=== PATIENT | male | born 1995 | race Caucasian/White ===

== ENCOUNTER 2018-11-02 10:23 | Emergency (ER) | payer MEDICAID ==
[~2018-11-02] VITALS: Ht 190.5 cm; Wt 77.8 kg
[2018-11-02 10:27] VITALS: BP 110/62; PULSE 71; RESP 19; Ht 190.5 cm; Wt 77.8 kg
[2018-11-02] MEDS ORDERED: ACET325T33 PO (11:25)
[2018-11-02] MEDS ORDERED: IBUP-1542 PO (11:25)
--- NOTE | 2018-11-02 11:27 | ERD ---
ER Documentation Chief Complaint Chief Complaint RIGHT HAND PAIN/INJURY HPI 23-year-old male presenting ER with right hand pain secondary to punching a wall 2 days ago. Patient states he was drinking alcohol and he punched a wall with friends. Patient is able to fully functional of his fingers he does not have limited range of motion. Patient has no allergies to medication and denies any past medical history. Patient states the pain is a 4 out of 10. The patient has not taken any medication or tried any intervention for this hand injury ROS All systems reviewed and are negative except as per history of present illness. Medications Home Meds Active Scripts Ibuprofen* (Motrin*) 600 Mg Tab, 600 MG PO Q6, #30 TAB Prov:JOSÉ ANTONIO HOLM PA-C 11/02/18 Acetaminophen* (Tylenol*) 325 Mg Tablet, 1 TAB PO Q6 PRN for PAIN AND OR ELEVATED TEMP, #20 TAB Prov:JOSÉ ANTONIO HOLM PA-C 11/02/18 Allergies Allergies: Coded Allergies: No Known Allergy (Unverified , 11/02/18) PMhx/Soc Medical and Surgical Hx: pt denies Medical Hx, pt denies Surgical Hx History of Surgery: No Hx Neurological Disorder: No Hx Respiratory Disorders: No Hx Cardiac Disorders: No Hx Psychiatric Problems: No Hx Miscellaneous Medical Probl: No Hx Alcohol Use: No Hx Substance Use: No Hx Tobacco Use: No Smoking Status: Never smoker FmHx Family History: No diabetes, No coronary disease, No other Physical Exam Vitals Vital Signs Date Temp Pulse Resp B/P (MAP) Pulse Ox O2 O2 Flow FiO2 Time Delivery Rate 11/02/18 98.3 71 19 110/62 93 10:27 (78) Physical Exam Const: No acute distress Head: Atraumatic Resp: Clear to auscultation bilaterally Cardio: Regular rate and rhythm, no murmurs Abd: Soft, non tender, non distended. Normal bowel sounds Skin: No petechiae or rashes Back: No midline or flank tenderness Ext: Patient has mild swelling to right distal fourth and fifth MTP. Patient has full range of motion and is able to make a fist and extend his fingers without difficulty. Patient's neurovascular exam was unremarkable Procedures/MDM Diagnostic imaging: Read by radiologist {} PROCEDURE: XR Hand. CLINICAL INDICATION: Pain TECHNIQUE: AP oblique and lateral views of the right hand were obtained. COMPARISON: No prior studies are available for comparison. FINDINGS: There is normal mineralization. No acute fracture or dislocation is seen. There are no significant degenerative changes. There is no significant soft tissue swelling. RPTAT: AA IMPRESSION: Normal x-ray of the right hand x-ray . PROCEDURE: Right wrist x-ray CLINICAL INDICATION: pain TECHNIQUE: AP, lateral and oblique views of the wrist were obtained. COMPARISON: None FINDINGS: There is normal mineralization. No acute fracture or dislocation is seen. There are no significant degenerative changes. There is no significant soft tissue swelling. RPTAT: AA IMPRESSION: Normal x-ray of the right wrist. Medications given in ER: Patient was offered Toradol for pain or acetaminophen for pain but patient refused Medical decision makin-year-old male presenting with right hand pain secondary to punching a wall couple days ago. Patient's physical exam was unremarkable patient was sent for x-rays of the right hand and wrist. No signs of fractures or dislocations. Patient had no signs of compartment syndrome and his neurovascular exam was unremarkable. At this time I have low suspicion for fracture, tendon or ligament injury, compartment syndrome, osteomyelitis, neurovascular injury. Patient was offered Toradol or sent Aminofen for pain but refused. Patient's hand was placed in a Velcro splint was advised to follow-up with his primary care provider regarding this visit. Patient was advised that no fracture or dislocation was noted on x-ray but if pain is persisting greater than a week he should have a follow-up x-ray in the extremity. Patient had no further questions upon discharge and after his hand was placed in the splint and neurovascular exam was redone and the patient had no deficits. Patient was advised if symptoms worsen return to ER immediately. Otherwise follow-up with primary care provider in 1 to 2 days. All questions were answered upon discharge and patient is agreement to the treatment plan Prescription for home: Acetaminophen Motrin Discharge: At this time, patient is stable for discharge and outpatient management. I have instructed the patient to follow-up with his\her primary care physician in 1 to 2 days. I have discussed with the patient the possibility of needing to see a specialist for further work-up and imaging studies if symptoms persist. I have instructed the patient to promptly return to the ER for any new or worsening symptoms including increased pain, fever, nausea, vomiting, weakness or LOC. The patient and\or family expressed understanding of and agreement with this plan. All questions were answered. Home care instructions were provided. Disclaimer: Inadvertent spelling and grammatical errors are likely due to EHR\dictation software use and do not reflect on the overall quality of patient care. Also, please note that the electronic time recorded on the note does not necessarily reflect the actual time of the patient encounter. Departure Diagnosis: Primary Impression: Right wrist sprain Encounter type: initial encounter Qualified Codes: S63.501A - Unspecified sprain of right wrist, initial encounter Additional Impression: Contusion, hand Encounter type: initial encounter Laterality: right Qualified Codes: S60.221A - Contusion of right hand, initial encounter Condition: Stable Patient Instructions: Sprain Hand Referrals: [facility] YOU HAVE RECEIVED A MEDICAL SCREENING EXAM AND THE RESULTS INDICATE THAT YOU DO NOT HAVE A CONDITION THAT REQUIRES URGENT TREATMENT IN THE EMERGENCY DEPARTMENT. FURTHER EVALUATION AND TREATMENT OF YOUR CONDITION CAN WAIT UNTIL YOU ARE SEEN IN YOUR DOCTORS OFFICE WITHIN THE NEXT 1-2 DAYS. IT IS YOUR RESPONSIBILITY TO MAKE AN APPOINTMENT FOR FOLOW-UP CARE. IF YOU HAVE A PRIMARY DOCTOR --you should call your primary doctor and schedule an appointment IF YOU DO NOT HAVE A PRIMARY DOCTOR YOU CAN CALL OUR PHYSICIAN REFERRAL HOTLINE AT IF YOU CAN NOT AFFORD TO SEE A PHYSICIAN YOU CAN CHOSE FROM THE FOLLOWING [facility] [address] [facility]. [facility] [address] [facility]. [facility] [address] [facility] [address] [facility]. [facility] [address] [facility]. [facility]. [address] [facility]. [facility] YOU HAVE RECEIVED A MEDICAL SCREENING EXAM AND THE RESULTS INDICATE THAT YOU DO NOT HAVE A CONDITION THAT REQUIRES URGENT TREATMENT IN THE EMERGENCY DEPARTMENT. FURTHER EVALUATION AND TREATMENT OF YOUR CONDITION CAN WAIT UNTIL YOU ARE SEEN IN YOUR DOCTORS OFFICE WITHIN THE NEXT 1-2 DAYS. IT IS YOUR RESPONSIBILITY TO MAKE AN APPOINTMENT FOR FOLOW-UP CARE. IF YOU HAVE A PRIMARY DOCTOR --you should call your primary doctor and schedule and appointment IF YOU DO NOT HAVE A PRIMARY DOCTOR YOU CAN CALL OUR PHYSICIAN REFERRAL HOTLINE AT . IF YOU CAN NOT AFFORD TO SEE A PHYSICIAN YOU CAN CHOSE FROM THE FOLLOWING [facility] INSTITUTIONS: [facility] [address] [place] [address] [facility] [address] [place] [address] [facility] [address] [place] [address] Additional Instructions: Call your primary care doctor TOMORROW for an appointment during the next 2-3 days.See the doctor sooner or return here if your condition worsens before your appointment time. JOSÉ ANTNOIO HOLM PA-C Nov 02, 2018 11:27
== END 2018-11-02 11:38 | disposition home or self-care (01) ==
LOC: FTE 10:23
DX: S63.501A Unspecified sprain of right wrist, initial encounter (principal); S60.221A Contusion of right hand, initial encounter; W22.01XA Walked into wall, initial encounter; Y92.9 Unspecified place or not applicable